=== PATIENT | female | born 1970 | race Caucasian/White ===

== ENCOUNTER 2020-07-27 12:19 | Emergency (ER) | payer OTHER ==
[~2020-07-27] VITALS: Ht 165.1 cm; Wt 81.7 kg
[~2020-07-27 12:19] MED LIST: ASPIR-TRIN325 MG; CLONAZEPAM2 MG; IBUPROFEN 800800 M1; METHADOSE10 MG; NAPROSYN500 MG PO; PROMETHAZINE HC25 M1; RESTORIL30 MG; TRAMADOL 50 MG50 MG PO; VALIUM5 MG PO
[2020-07-27 14:24] LABS: ABSOLUTE NEUTROPHILS 6.2 thou/uL (1.4-8.2); BASOPHILS 0.7 % (0.0-2.0); EOSINOPHILS 0.6 % (0.0-3.0); HEMATOCRIT 41.2 % (37.0-47.0); HEMOGLOBIN 13.7 gm/dL (12.0-15.0); LYMPHOCYTES 22.2 % (24.0-44.0); MCH 30.1 pg (26.0-34.0); MCHC 33.2 g/dL (28.0-37.0); MCV 90.7 fL (80.0-100.0); MONOCYTES 5.4 % (1.0-8.0); PLATELET COUNT 185 thou/uL (150-400); POLYS 71.1 % (36.0-66.0); RBC 4.54 mil/uL (4.20-5.00); RDW 13.8 % (10.5-14.5); WBC 8.8 thou/uL (4.0-11.0)
[2020-07-27 14:34] LABS: CALCIUM 9.3 mg/dL (8.5-10.1); POTASSIUM 4.8 mmol/L (3.5-5.1)
[2020-07-27] MEDS ORDERED: BACTRIM DS TAB1 EACH PO (15:41)
[2020-07-27] MEDS ORDERED: KEFLEX500 M1 PO (15:41)
[2020-07-27 16:08] VITALS: BP 151/84
== END 2020-07-27 16:22 | disposition home or self-care (01) ==
LOC: ER 12:19
PROVIDERS: Emergency Medicine
DX: L03.213 Periorbital cellulitis (principal); G43.909 Migraine, unspecified, not intractable, without status migrainosus; F17.210 Nicotine dependence, cigarettes, uncomplicated; Z79.899 Other long term (current) drug therapy; Z79.82 Long term (current) use of aspirin